=== PATIENT | female | born 1965 | race African-American/Black ===

== ENCOUNTER 2018-10-13 10:29 | Emergency (ER) | payer OTHER ==
--- NOTE | 2018-10-13 10:45 | ER Document Report ---
ED Medical Screen (RME) - General Chief Complaint: Abdominal Pain Stated Complaint: ABDOMINAL PAIN Time Seen by Provider: 10/13/18 10:40 Mode of Arrival: Ambulatory Information source: Patient Notes: Pulse ox patient is a 53-year-old female with past medical history of IBS who presents to the emergency department with sudden onset left lower quadrant pain. Patient reports this occurred while she was sitting on the commode trying to have a bowel movement. She reports that she was able to have a normal bowel movement however the pain was so severe in the middle of her abdomen and left lo wer quadrant that she got cold, sweaty and felt like she was going to pass out. She denies any nausea, vomiting, diarrhea or fevers. She denies the need for any pain medications at this time. Denies history of diverticulitis. Exam: Tenderness to palpation to left lower quadrant without guarding or rebound. I have greeted and performed a rapid initial assessment of this patient. A comprehensive ED assessment and evaluation of the patient, analysis of test results and completion of the medical decision making process will be conducted by additional ED providers. Dictation of this chart was performed using voice recognition software; therefore, there may be some unintended grammatical errors. TRAVEL OUTSIDE OF THE [place] IN LAST 30 DAYS: No - Related Data Allergies/Adverse Reactions: No Known Allergies Allergy (Verified 04/13/14 10:40) Past Medical History Past Surgical History: Reports: Hx Breast Surgery - biopsy, Hx Section - Immunizations Hx Diphtheria, Pertussis, Tetanus Vaccination: Yes
[2018-10-13 10:49] VITALS: BP 115/61
[2018-10-13] MEDS ORDERED: KETOROLAC TROMETHAMINE INJ/PF 30 MG/1 ML SDV IV ONE (11:22)
[2018-10-13 11:24] LABS: ABSOLUTE EOSINOPHILS # (AUTO) 0.1 10^3/uL (0.0-0.6); ABSOLUTE LYMPHOCYTES (AUTO) 1.1 10^3/uL (0.5-4.7); ABSOLUTE MONOCYTES (AUTO) 0.4 10^3/uL (0.1-1.4); ABSOLUTE NEUT (AUTO) 5.6 10^3/uL (1.7-8.2); BASOPHILS % (AUTO) 0.4 % (0-2); EOSINOPHILS % (AUTO) 0.9 % (0-6); LYMPHOCYTES % (AUTO) 14.8 % (13-45); MEAN CORPUSCULAR HGB CONC 34.2 g/dL (32.0-36.0); MEAN CORPUSCULAR VOLUME 91 fl (80-97); MONOCYTES % (AUTO) 6.1 % (3-13); PLATELET COUNT 337 10^3/uL (150-450); RED CELL DISTRIBUTION WIDTH 13.3 % (11.5-14.0); SEGMENTED NEUTROPHILS % (AUTO) 77.8 % (42-78); TOTAL CELLS COUNTED % (AUTO) 100 %; WHITE BLOOD COUNT 7.2 10^3/uL (4.0-10.5)
--- NOTE | 2018-10-13 11:25 | ER Document Report ---
ED GI/ - General Mode of Arrival: Ambulatory TRAVEL OUTSIDE OF THE [place] IN LAST 30 DAYS: No - HPI Patient complains to provider of: Abdominal pain <DIGNA MONROE - Last Filed: 10/13/18 12:45> <NAEL BARLOW - Last Filed: 10/13/18 13:12> - General Chief Complaint: Abdominal Pain Stated Complaint: ABDOMINAL PAIN Time Seen by Provider: 10/13/18 10:40 Primary Care Provider: RADHA SONG MD [ACTIVE STAFF] - Follow up as needed - HPI Notes: 10/13/18 11:23 Patient is here with complaints of left lower quadrant abdominal pain. She states that she was having a bowel movement this morning when she had sudden pain in the left lower abdomen. She denies any nausea, vomiting, diarrhea. No blood in her stool. No dysuria or hematuria. She is currently taking Bactrim for possible urinary tract infection from her primary care doctor. She denies any chest pain or shortness of breath. No rash. The pain is constant, but has significantly improved from before. The pain was severe at onset, it seems to be mild to moderate now. Nothing seems to make the pain better or worse. No fevers. No prior abdominal surgeries. No history of diverticulitis or kidney stones. She does have a history of ovarian cysts. No vaginal bleeding or discharge at this time. No other complaints at this time. (DIGNA MONROE) - Related Data Allergies/Adverse Reactions: No Known Allergies Allergy (Verified 04/13/14 10:40) Past Medical History - General Information source: Patient - Social History Smoking Status: Never Smoker Frequency of alcohol use: None Drug Abuse: None Family History: Reviewed & Not Pertinent Patient has suicidal ideation: No Patient has homicidal ideation: No - Past Medical History Cardiac Medical History: Reports: Hx Hypercholesterolemia Renal/ Medical History: Denies: Hx Peritoneal Dialysis GI Medical History: Reports: Hx Gastroesophageal Reflux Disease Past Surgical History: Reports: Hx Breast Surgery - biopsy, Hx Section, Hx Orthopedic Surgery - L knee - Immunizations Hx Diphtheria, Pertussis, Tetanus Vaccination: Yes <DIGNA MONROE - Last Filed: 10/13/18 12:45> Review of Systems - Review of Systems -: Yes All other systems reviewed and negative <DIGNA MONROE - Last Filed: 10/13/18 12:45> Physical Exam <DIGNA MONROE - Last Filed: 10/13/18 12:45> - Vital signs Vitals: Temp Pulse Resp BP Pulse Ox 98.0 F 74 18 115/61 99 10/13/18 10:36 10/13/18 10:36 10/13/18 10:36 10/13/18 10:36 10/13/18 10:36 - Notes Notes: GENERAL: alert, cooperative, nontoxic, no distress. HEAD: normocephalic, atraumatic EYES: conjunctiva pink without discharge, no external redness or swelling. EARS: no external swelling, no external redness NOSE: atraumatic, no external swelling MOUTH/THROAT: mucous membranes moist and pink, posterior pharynx without erythema, swelling, exudate. No trismus or drooling. NECK: soft, supple, full range of motion, no meningismus. CHEST: no distress, lungs clear and equal throughout. No wheezing, rales, rhonchi. CARDIAC: regular rate and rhythm, no murmur, normal capillary refill, normal pulses. No peripheral edema noted. ABDOMEN: Soft, tenderness to palpation in the left lower quadrant. No rebound tenderness, mild voluntary guarding. No mass. BACK: full range of motion, no CVA tenderness. EXTREMITIES: full range of motion of all extremities. No redness, no swelling. NEURO: alert and oriented x 3, no focal deficits, full range of motion of all extremities. PYSCH: appropriate mood, affect. Patient is cooperative. SKIN: pink, warm, dry, no rash. (DIGNA MONROE) Course - Laboratory Result Diagrams: 10/13/18 10:53 10/13/18 10:53 - Diagnostic Test Radiology reviewed: Image reviewed, Reports reviewed - Right-sided ovarian cyst, uterine fibroids, possible colitis versus artifact. <DIGNA MONROE - Last Filed: 10/13/18 12:45> - Laboratory Result Diagrams: 10/13/18 10:53 10/13/18 10:53 <NAEL BARLOW - Last Filed: 10/13/18 13:12> - Re-evaluation Re-evalutation: 10/13/18 12:45 Patient nontoxic-appearing with stable vitals. Patient here with complaints of left-sided abdominal pain while having a bowel movement earlier today. Vitals are stable. She is afebrile. Labs are unremarkable with a normal white blood cell count. Urinalysis shows no signs of infection. CT of the abdomen pelvis IV contrast shows a right-sided ovarian cyst, uterine fibroids, possible colitis although this may be artifact according to the read. Patient is not having fever or diarrhea, she has a normal WBC count, colitis less likely the source of the pain. This point the patient will be discharged home with instructions to follow-up with GI at the next available appointment. Follow-up sooner for any worsening pain, high fever, persistent vomiting, any further concerns. The patient's emergency department workup and current diagnosis were explained to the patient and or family. Follow-up instructions were provided. Medications if prescribed were discussed. Instructions for when to return to the emergency department including specific worrisome symptoms were discussed with the patient and/or family. (DIGNA MONROE) 10/13/18 13:11 Patient seen and evaluated. She states her left lower quadrant abdominal pain has improved since being medicated in the emergency room. She is still mildly tender in her left lower quadrant with no rigidity guarding or rebound. She now describes the pain as a mild dull ache. Her lab work is unremarkable. CT scan shows a questionable colitis. Patient does not have leukocytosis or fever and is not requiring antibiotics. She will be referred to GI. She is in agreement with plan of care and stable for discharge. (NALE BARLOW) - Vital Signs Vital signs: Temp Pulse Resp BP Pulse Ox 98.0 F 74 18 115/61 99 10/13/18 10:36 10/13/18 10:36 10/13/18 10:36 10/13/18 10:36 10/13/18 10:36 Discharge <DIGNA MONROE - Last Filed: 10/13/18 12:45> <NAEL BARLOW - Last Filed: 10/13/18 13:12> - Discharge Clinical Impression: Abdominal pain Qualifiers: Abdominal location: left lower quadrant Qualified Code(s): R10.32 - Left lower quadrant pain Condition: Stable Disposition: HOME, SELF-CARE Instructions: Abdominal Pain ([facility]) Additional Instructions: Follow-up with GI at the next available appointment. Follow-up sooner for worsening pain, high fever, persistent vomiting, blood in your stool, or for any further concerns. Referrals: RADHA SONG MD [ACTIVE STAFF] - Follow up as needed
[2018-10-13 11:29] LABS: APPEARANCE,URINE SLIGHTLY-CLOUDY; BILIRUBIN,URINE NEGATIVE (NEGATIVE); COLOR,URINE YELLOW; GLUCOSE, URINE NEGATIVE (NEGATIVE); KETONES,URINE NEGATIVE (NEGATIVE); LEUKOCYTE ESTERASE,URINE NEGATIVE (NEGATIVE); NITRITE,URINE NEGATIVE (NEGATIVE); PROTEIN,URINE NEGATIVE (NEGATIVE); URINE SPECIFIC GRAVITY 1.014; UROBILINOGEN,URINE NEGATIVE mg/dL (<2.0)
[2018-10-13 11:42] LABS: ALANINE AMINOTRANSFERASE 25 U/L (9-52); ALBUMIN 4.2 g/dL (3.5-5.0); ALKALINE PHOSPHATASE 117 U/L (38-126); ANION GAP 11 (5-19); ASPARTATE AMINO TRANSFERASE 22 U/L (14-36); BILIRUBIN,DIRECT 0.2 mg/dL (0.0-0.4); BILIRUBIN,TOTAL 0.6 mg/dL (0.2-1.3); BLOOD UREA NITROGEN 11 mg/dL (7-20); CALCIUM 9.4 mg/dL (8.4-10.2); CARBON DIOXIDE 23 mmol/L (22-30); CHLORIDE 103 mmol/L (98-107); GLUCOSE 96 mg/dL (75-110); LIPASE 34.7 U/L (23-300); POTASSIUM 4.2 mmol/L (3.6-5.0); SODIUM 137.3 mmol/L (137-145); TOTAL PROTEIN 7.6 g/dL (6.3-8.2)
--- NOTE | 2018-10-13 12:36 | RADIOLOGY REPORT (SQ) ---
EXAM DESCRIPTION: CT ABD/PELVIS WITH IV ONLY COMPLETED DATE/TIME: 10/13/2018 12:21 pm REASON FOR STUDY: LLQ pain COMPARISON: None. TECHNIQUE: CT scan of the abdomen and pelvis performed using helical scanning technique with dynamic intravenous contrast injection. No oral contrast. Images reviewed with lung, soft tissue, and bone windows. Reconstructed coronal and sagittal MPR images reviewed. Delayed images for evaluation of the urinary system also acquired. All images stored on PACS. All CT scanners at this facility use dose modulation, iterative reconstruction, and/or weight based d osing when appropriate to reduce radiation dose to as low as reasonably achievable (ALARA). [facility]: Dose Right [facility]: CareDose [facility]: Dose Right [facility]: Teradose 4D [facility]: Payteller CONTRAST TYPE AND DOSE: contrast/concentration: Isovue 350.00 mg/ml; Total Contrast Delivered: 82.0 ml; Total Saline Delivered: 68.0 ml RENAL FUNCTION: GFR > 60. RADIATION DOSE: CT Rad equipment meets quality standard of care and radiation dose reduction techniq ues were employed. CTDIvol: 7.5 - 10.6 mGy. DLP: 984 mGy-cm.. LIMITATIONS: None. FINDINGS: LOWER CHEST: No significant findings. No nodules or infiltrates. LIVER: Normal size. No masses. No dilated ducts. SPLEEN: Normal size. No focal lesions. PANCREAS: No masses. No significant calcifications. No adjacent inflammation or peripancreatic fluid collections. Pancreatic duct not dilated. GALLBLADDER: No identified stones by CT criteria. No inflammatory changes to suggest cholecystitis. ADRENAL GLANDS: No significant masses or asymmetry. RIGHT KIDNEY AND URETER: No solid masses. No significant calcification. No hydronephrosis or hydroure ter. LEFT KIDNEY AND URETER: No solid masses. No significant calcification. No hydronephrosis or hydrouret er. AORTA AND VESSELS: No aneurysm. No dissection. Renal arteries, SMA, celiac without stenosis. RETROPERITONEUM: No retroperitoneal adenopathy, hemorrhage or masses. BOWEL AND PERITONEAL CAVITY: Slight wall thickening throughout most of the transverse colon, splenic flexure and descending colon. This may simply be due to lack of any distention with fecal or fluid m aterial. Proximal to this, the colon looks normal. No small bowel pathology detected. No ascites o r abnormal gas. APPENDIX: Normal. PELVIS: Enlarged multi fibroid uterus. ABDOMINAL WALL: No masses. No hernias. BONES: No significant or acute findings. OTHER: No other significant finding. IMPRESSION: 1. Potential colitis. Differential includes artifact. No mechanical bowel obstruction. 2. Fibroid uterus. 3. 2.8 cm simple appearing right ovarian cyst. Doubtful clinical significance in a patient of this a ge, given size and lack of any reported right pelvic pain. Followup of asymptomatic adnexal cysts found on CT or MRI in postmenopausal patients Early postmenopausal (50-55 yo) *Benign cyst ?3 cm: No followup necessary. Note: If cyst is clinically symptomatic or otherwise concerning, other followup may be necessary. Menopause is considered age 50 by radiologist unless date of last period is known. Based on Managing Incidental Findings on Abdominal and Pelvic CT and MRI, Part 1: White Paper of the ACR Incidental Fi ndings Committee II on Adnexal Findings J Am Mary Radiol 2013;10:675-681. TECHNICAL DOCUMENTATION: JOB ID: [id number] Quality ID # [id number]: Final reports with documentation of one or more dose reduction techniques (e.g., Au tomated exposure control, adjustment of the mA and/or kV according to patient size, use of iterative reconstruction technique) 2010 [employer]- All Rights Reserved Reading location - IP/workstation name: [email or web address]
== END 2018-10-13 13:11 | disposition home or self-care (01) ==
LOC: ER 10:29
DX: R10.32 Left lower quadrant pain (principal)
CPT/HCPCS: 99284; 96374; 36415; 87086; 83690; 85025; 80053; 81001; 74177; J1885